=== PATIENT | male | born 1960 | race Caucasian/White ===

== ENCOUNTER 2018-06-02 02:03 | Emergency (ER) | payer OTHER ==
[2018-06-02] MEDS ORDERED: ONDANSETRON 4 MG/2 ML VIAL ONE (02:43)
[2018-06-02] MEDS ORDERED: KETOROLAC 15 MG/1 ML SDV IVP ONE (02:48)
[2018-06-02] MEDS ORDERED: ONDANSETRON 4 MG/2 ML VIAL IVP ONE (02:48)
[2018-06-02] MEDS ORDERED: NS 1,000 ML IV ONE (02:48)
[2018-06-02] MEDS ORDERED: fentaNYL 100 MCG/2 ML INJ ONE (02:57)
[2018-06-02] MEDS ORDERED: fentaNYL 100 MCG/2 ML INJ IVP ONE (03:02)
[2018-06-02 03:03] LABS: PLATELET COUNT 279 10^3/uL (150-400)
[2018-06-02 05:04] VITALS: BP 108/67
[2018-06-02] MEDS ORDERED: TAMSULOSIN HCL 0.4 MG CAP PO ONE (05:22)
--- NOTE | 2018-06-02 05:22 | EDPHY ---
H & P Stated Complaint: L SIDE ABD PAIN,N/V SINCE THURSDAY/WAS HERE TWO DAYS AGO Time Seen by Provider: 06/02/18 02:43 HPI/ROS: Chief Complaint: Left flank pain HPI: 57-year-old male presenting with left flank pain. He was seen here on the and had a CT scan which was unremarkable. It was noted that he had hematuria at this time. Patient has been pain-free since then until this morning when he had onset of severe left-sided flank pain approximately 30 min ago. Some nausea. No vomiting. No fevers or chills. He has had some urinary urgency and frequency. ROS: 10 systems were reviewed and were negative except those elements noted in the HPI. PMH: Denies Social History: No smoking Family History: non-contributory Physical Exam: Gen: Awake, Alert, uncomfortable appearing HEENT: Nose: no rhinorrhea Eyes: PERRLA, EOMI Mouth: Moist mucosa Neck: Supple, no JVD Chest: nontender, lungs clear to auscultation Heart: S1, S2 normal, no murmur Abd: Soft, non-tender, no guarding Back: no CVA tenderness, no midline tenderness Ext: no edema, non-tender Skin: no rash Neuro: CN II-XII intact, Sensation grossly intact, Strength 5/5 in bilateral upper and lower extremities - Personal History Current Tetanus Diphtheria and Acellular Pertussis (TDAP): Yes - Medical/Surgical History Hx Asthma: No Hx Chronic Respiratory Disease: No Hx Diabetes: No Hx Cardiac Disease: No Hx Renal Disease: No Hx Cirrhosis: No Hx Alcoholism: No Hx HIV/AIDS: No Hx Splenectomy or Spleen Trauma: No Other PMH: High cholesterol, R hand surgery, - Social History Smoking Status: Never smoked Constitutional: Initial Vital Signs Temperature (C) 36.7 C 06/02/18 02:21 Heart Rate 79 06/02/18 02:21 Respiratory Rate 20 06/02/18 02:21 Blood Pressure 157/103 H 06/02/18 02:21 O2 Sat (%) 97 06/02/18 02:21 O2 Delivery Mode Room Air O2 (L/minute) 2 Allergies/Adverse Reactions: No Known Allergies Allergy (Unverified 08/21/14 13:53) Home Medications: Medication Instructions Recorded CEPHALEXIN 06/02/18 CeleBREX 06/02/18 Tamsulosin HCl 0.4 mg PO DAILY #10 cap 06/02/18 oxyCODONE HCL/ACETAMINOPHEN 1 - 2 each PO Q6 PRN #12 tablet 06/02/18 [Oxycodone-Acetaminophen 5-325] Medical Decision Making - Diagnostics Imaging Results: Left renal ultrasound shows a 7 mm calculus with minimal hydro per Dr. Hemphill. ED Course/Re-evaluation: 57-year-old male who is here several days ago with left flank pain. Had a negative CT scan at that time. In retrospect Dr. Hemphill has reviewed the study and believes that there was a phlebolith which was likely a ureteral stone. Patient definitely has a stone on ultrasound today. Pain is relieved with fentanyl and Toradol. No nausea. Plan will be to discharge with continuing oral analgesia, tamsulosin. Patient has already been in contact with Dr. Bush, urology. - Data Points Laboratory Results: Laboratory Results 06/02/18 02:50 06/02/18 02:50 06/02/18 06/02/18 06/02/18 02:50 02:50 02:50 WBC 8.02 10^3/uL 10^3/uL (3.80-9.50) RBC 5.37 10^6/uL 10^6/uL (4.40-6.38) Hgb 15.4 g/dL g/dL (13.7-17.5) Hct 44.7 % % (40.0-51.0) MCV 83.2 fL fL (81.5-99.8) MCH 28.7 pg pg (27.9-34.1) MCHC 34.5 g/dL g/dL (32.4-36.7) RDW 12.9 % % (11.5-15.2) Plt Count 279 10^3/uL 10^3/uL (150-400) MPV 9.5 fL fL (8.7-11.7) Neut % (Auto) 55.4 % % (39.3-74.2) Lymph % (Auto) 34.7 % % (15.0-45.0) [place] % (Auto) 8.6 % % (4.5-13.0) Eos % (Auto) 0.9 % % (0.6-7.6) Baso % (Auto) 0.2 % L % (0.3-1.7) Nucleat RBC Rel Count 0.0 % % (0.0-0.2) Absolute Neuts (auto) 4.44 10^3/uL 10^3/uL (1.70-6.50) Absolute Lymphs (auto) 2.78 10^3/uL 10^3/uL (1.00-3.00) Absolute Monos (auto) 0.69 10^3/uL 10^3/uL (0.30-0.80) Absolute Eos (auto) 0.07 10^3/uL 10^3/uL (0.03-0.40) Absolute Basos (auto) 0.02 10^3/uL 10^3/uL (0.02-0.10) Absolute Nucleated RBC 0.00 10^3/uL 10^3/uL (0-0.01) Immature Gran % 0.2 % % (0.0-1.1) Immature Gran # 0.02 10^3/uL 10^3/uL (0.00-0.10) Sodium 142 mEq/L mEq/L (135-145) Potassium 3.7 mEq/L mEq/L (3.3-5.0) Chloride 105 mEq/L mEq/L (97-110) Carbon Dioxide 25 mEq/l mEq/l (22-31) Anion Gap 12 mEq/L mEq/L (6-14) BUN 19 mg/dL mg/dL (7-23) Creatinine 1.0 mg/dL mg/dL (0.7-1.3) Estimated GFR > 60 Glucose 120 mg/dL H mg/dL (70-100) Calcium 9.6 mg/dL mg/dL (8.5-10.4) Total Bilirubin 1.6 mg/dL H mg/dL (0.1-1.4) AST 29 IU/L IU/L (17-59) ALT 41 IU/L IU/L (21-72) Alkaline Phosphatase 96 IU/L IU/L (38-126) Total Protein 7.9 g/dL g/dL (6.3-8.2) Albumin 4.9 g/dL g/dL (3.5-5.0) Urine Color BROWN Urine Appearance HAZY Urine pH 5.5 (5.0-7.5) Ur Specific [place] >= 1.030 (1.002-1.030) Urine Protein 1+ H (NEGATIVE) Urine Ketones NEGATIVE (NEGATIVE) Urine Blood 3+ H (NEGATIVE) Urine Nitrate NEGATIVE (NEGATIVE) Urine Bilirubin NEGATIVE (NEGATIVE) Urine Urobilinogen 0.2 EU EU (0.2-1.0) Ur Leukocyte Esterase NEGATIVE (NEGATIVE) Urine RBC 15-25 /hpf H /hpf (0-3) Urine WBC 1-3 /hpf /hpf (0-3) Ur Epithelial Cells TRACE /lpf /lpf (NONE-1+) Calcium Oxalate Crystal 1+ /hpf /hpf (NONE-1+) Urine Bacteria TRACE /hpf H /hpf (NONE SEEN) Urine Mucus 3+ /lpf H /lpf (NONE-1+) Urine Glucose NEGATIVE (NEGATIVE) Medications Given: Discontinued Medications Fentanyl (Sublimaze) 100 mcg IVP EDNOW ONE Stop: 06/02/18 03:03 Last Admin: 06/02/18 03:03 Dose: 100 mcg Sodium Chloride (Ns) 1,000 mls @ 0 mls/hr IV ONCE ONE; Wide Open PRN Reason: Protocol Stop: 06/02/18 02:49 Last Admin: 06/02/18 02:52 Dose: 1,000 mls Ketorolac Tromethamine (Toradol) 15 mg IVP EDNOW ONE Stop: 06/02/18 02:49 Last Admin: 06/02/18 02:52 Dose: 15 mg Ondansetron HCl (Zofran) 4 mg IVP EDNOW ONE Stop: 06/02/18 02:49 Last Admin: 06/02/18 02:52 Dose: 4 mg Departure - Departure Disposition: Home, Routine, Self-Care Clinical Impression: Kidney stone Condition: Good Instructions: Kidney Stones (ED), How to Strain Your Urine (ED) Additional Instructions: Take ibuprofen, 600 mg every 8 hr. You may alternate with acetaminophen, 1000 mg every 8 hr. Take the tamsulosin daily to help you passed stone. Follow up with Urology in 2-3 days for further evaluation. Return to the emergency department for increasing pain, fevers, chills, nausea, vomiting, or any other concerns. Referrals: Drew Keenan MD [Primary Care Provider] - As per Instructions Prescriptions: oxyCODONE HCL/ACETAMINOPHEN [Oxycodone-Acetaminophen 5-325] 1 - 2 each PO Q6 PRN #12 tablet PRN Reason: Pain, Severe Tamsulosin HCl 0.4 mg PO DAILY #10 cap
== END 2018-06-02 05:30 | disposition home or self-care (01) ==
DX: N13.2 Hydronephrosis with renal and ureteral calculous obstruction (principal); E86.9 Volume depletion, unspecified; E78.00 Pure hypercholesterolemia, unspecified
CPT/HCPCS: 96374; J1885; J2405; J3010